=== PATIENT | female | born 1995 | race Caucasian/White ===

== ENCOUNTER 2017-05-01 21:16 | Emergency (ER) | payer OTHER ==
[2017-05-02] MEDS ORDERED: Ibuprofen TAB* 400 MG PO ONE (00:34)
--- NOTE | 2017-05-02 00:45 | ED ---
Lower Extremity - HPI Summary HPI Summary: 22 female presents to ED with complaints of right ankle pain/injury that began just [employer] after a mechanical fall. Patient states she was walking and twisted her ankle, tripping. Denies hitting head or any other injury/trauma. Has not taken any medication. Admits to swelling. Denies numbness/tingling. Unable to bear weight due to pain/injury. Has some ROM of right ankle. No other complaints. No PMHx. - History of Current Complaint Chief Complaint: EDExtremityLower Stated Complaint: RT ANKLE INJURY Time Seen by Provider: 05/01/17 23:34 Hx Obtained From: Patient Mechanism Of Injury: Twisted Onset of Pain: Immediate, Post Accident Onset/Duration: Hours Severity Initially: Mild Severity Currently: Mild Pain Intensity: 5 Pain Scale Used: 0-10 Numeric Timing: Constant Location: Is Discrete @ - right ankle Character Of Pain: Sharp - with movement, Aching Associated Signs And Symptoms: Positive: Swelling Aggravating Factor(s): Ambulation, Movement, Weight Bearing Alleviating Factor(s): Rest Able to Bear Weight: No - due to pain/injury Feet (Multiple View): 1 - pain and swelling - Allergies/Home Medications Allergies/Adverse Reactions: Allergies Allergy/AdvReac Type Severity Reaction Status Date / Time No Known Allergies Allergy Verified 05/01/17 21:28 PMH/Surg Hx/FS Hx/Imm Hx Endocrine/Hematology History: Denies: Hx Diabetes Cardiovascular History: Denies: Hx Hypertension Respiratory History: Denies: Hx Asthma - Surgical History Surgery Procedure, Year, and Place: n/a - Immunization History Immunizations Up to Date: Yes Infectious Disease History: Unable to Obtain/Confirm Infectious Disease History: Denies: Traveled Outside the [place] in Last 30 Days - Family History Known Family History: Positive: None - Social History Alcohol Use: Rare Substance Use Type: Reports: None Smoking Status (MU): Never Smoked Tobacco Review of Systems Constitutional: Negative Cardiovascular: Negative Respiratory: Negative Positive: Arthralgia, Myalgia, Decreased ROM, Edema - right ankle Skin: Negative Neurological: Negative All Other Systems Reviewed And Are Negative: Yes Physical Exam Triage Information Reviewed: Yes Vital Signs On Initial Exam: Initial Vitals Temp Pulse Resp BP Pulse Ox 98.2 F 89 16 121/83 100 05/01/17 21:23 05/01/17 21:23 05/01/17 21:23 05/01/17 21:23 05/01/17 21:23 Vital Signs Reviewed: Yes Appearance: Positive: Well-Appearing, No Pain Distress, Well-Nourished Skin: Positive: Warm, Skin Color Reflects Adequate Perfusion, Dry. Negative: Cyanosis @, Erythema @ Head/Face: Positive: Normal Head/Face Inspection Eyes: Positive: Conjunctiva Clear ENT: Positive: Hearing grossly normal Neck: Positive: Supple, Nontender Respiratory/Lung Sounds: Positive: Clear to Auscultation, Breath Sounds Present. Negative: Rales, Rhonchi, Wheezes Cardiovascular: Positive: Normal, RRR, Pulses are Symmetrical in both Upper and Lower Extremities - 2+ pedal and radial. Negative: Murmur, Rub Musculoskeletal: Positive: Limited @ - right ankle due to pain and swelling, has some ROM. rest of MSK exam and ROM normal, Pain @ - lateral right ankle and anterior ankle, Edema Right - ankle lateral, Other - no crepitus step off. no tenderness on palpation of lower extremity. Negative: Interruption @ Neurological: Positive: Normal, Sensory/Motor Intact, Alert, Oriented to Person Place, Time, CN Intact II-III, Reflexes Intact, NV Bundle Intact Distally, Unable to Assess Gait - due to pain injury - Graciela Coma Scale Coma Scale Total: 15 Diagnostics - Vital Signs Vital Signs Temp Pulse Resp BP Pulse Ox 05/01/17 21:23 98.2 F 89 16 121/83 100 - Laboratory Lab Statement: Any lab studies that have been ordered have been reviewed, and results considered in the medical decision making process. - Radiology right ankle Xray Interpretation: Positive (See Comments) - soft tissue swelling lateral right ankle, negative for acute fracture or dislocation Radiology Interpretation Completed By: ED Physician - myself and Dr Roca Lower Extremity Course/Dx - Course Course Of Treatment: given ibuprofen for pain and swelling. xray obtained and negative. appears to be suffering from an ankle sprain. no concern for other etiology at this time. no other injuries. RICE crutches, brace and avoid bearing weight. follow up with PCP for re-check. Aware of worsening signs and symptoms to watch out for. - Diagnoses Differential Diagnosis/HQI/PQRI: Positive: Contusion, Dislocation, Fracture ( Closed), Sprain, Strain Provider Diagnoses: Right ankle sprain Discharge - Discharge Plan Condition: Stable Disposition: HOME Patient Education Materials: Ankle Sprain (ED) Referrals: [facility] - Stuart HOGAN [Primary Care Provider] - Additional Instructions: Take ibuprofen/tylenol for pain and inflammation. Rest, ice and elevate. Avoid bearing weight until symptoms improve. Wear brace and use crutches. Follow up with PCP within 7 days to ensure improvement and re-check. Any new or worsening signs or symptoms to watch out for please seek medical attention.
[2017-05-02 01:18] VITALS: BP 118/81
--- NOTE | 2017-05-02 09:49 | RAD ---
INDICATION: Lateral ankle pain after rolling injury. COMPARISON: None. TECHNIQUE: 3 views of the right ankle were obtained. FINDINGS: There is induration and soft tissue swelling overlying the fibular malleolus. The bones are normal alignment. Joint spaces appear maintained. No fracture is seen. IMPRESSION: SOFT TISSUE SWELLING AND INDURATION OVERLYING THE FIBULAR MALLEOLUS WITHOUT RADIOGRAPHICALLY APPARENT FRACTURE OR DISLOCATION. If the patient's symptoms persist, follow-up imaging is recommended.
== END 2017-05-02 01:21 | disposition home or self-care (01) ==
LOC: ED 21:16
DX: S93.401A Sprain of unspecified ligament of right ankle, initial encounter (principal); M25.571 Pain in right ankle and joints of right foot; W19.XXXA Unspecified fall, initial encounter; Y93.9 Activity, unspecified; Y92.9 Unspecified place or not applicable
CPT/HCPCS: 99282; A9270-GY